=== PATIENT | female | born 1940 | race Caucasian/White ===

== ENCOUNTER → 2016-12-20 07:34 | Outpatient (CLI) | payer MEDICARE, OTHER | END | disposition home or self-care (01) | LOC: D.CT 07:34 | DX: J32.9 Chronic sinusitis, unspecified (principal); J34.3 Hypertrophy of nasal turbinates ==

== ENCOUNTER 2019-03-28 08:21 | Emergency (ER) | payer MEDICARE, OTHER ==
[~2019-03-28] VITALS: Ht 167.6 cm; Wt 61.4 kg
[2019-03-28 08:24] VITALS: Ht 167.6 cm; Wt 61.4 kg
[2019-03-28] MEDS ORDERED: PROTONIX40 MG PO (08:26)
[2019-03-28] MEDS ORDERED: NORVASC2.5 MG PO (08:27)
[2019-03-28] MEDS ORDERED: OMNICEF300 MG PO (08:28)
[2019-03-28] MEDS ORDERED: TIROSINT50 MCG PO (08:29)
[2019-03-28 09:04] LABS: BASOPHILS 0.4 % (0-2); EOSINOPHILS 2.8 % (0-7); HEMATOCRIT 40.4 % (36.0-48.0); HEMOGLOBIN 12.2 g/dL (12-16); IMMATURE GRANULOCYTES 0.1 % (0-5); LYMPHOCYTES 35.4 % (15-50); MCH 30.3 pg (26.0-34.0); MCHC 30.2 g/dL (31.0-37.0); MCV 100.5 fL (80.0-100.0); MEAN PLATELET VOLUME 10.4 fL (7.4-10.4); MONOCYTES 5.7 % (2-11); NEUTROPHILS 55.6 % (40-80); PLATELET COUNT 223 10x3/uL (130-400); RBC 4.02 10x6/uL (4.00-5.40); WBC 6.8 10x3/uL (4.8-10.8)
[2019-03-28 09:16] LABS: ANION GAP 14.1 mmol/L (8-16); CALCIUM 8.9 mg/dL (8.5-10.1); CARBON DIOXIDE 25.8 mmol/L (21.0-32.0); CREATININE - SERUM 4.1 mg/dL (0.6-1.3); POTASSIUM - SERUM 3.9 mmol/L (3.5-5.1)
[2019-03-28 09:31] LABS: ALBUMIN 2.8 g/dL (3.4-5.0); BILIRUBIN - TOTAL 0.36 mg/dL (0.2-1.3); THYROID STIMULATING HORMONE 9.89 uIU/mL (0.36-3.74); TROPONIN-I 0.026 ng/mL (0.000-0.060)
[2019-03-28 10:51] VITALS: BP 120/68
[2019-05-07 09:40] VITALS: Ht 167.6 cm; Wt 61.4 kg
== END 2019-03-28 11:16 | disposition home or self-care (01) ==
LOC: D.ER 08:21
PROVIDERS: Family Medicine
DX: R10.9 Unspecified abdominal pain (principal); I12.0 Hypertensive chronic kidney disease with stage 5 chronic kidney disease or end stage renal disease; N18.6 End stage renal disease; E03.9 Hypothyroidism, unspecified

== ENCOUNTER 2019-04-03 22:11 | Emergency (ER) | payer MEDICARE, OTHER ==
[~2019-04-03] VITALS: Ht 167.6 cm; Wt 61.4 kg
[~2019-04-03 22:11] MED LIST: NORVASC2.5 MG PO; OMNICEF300 MG PO; PROTONIX40 MG PO; TIROSINT50 MCG PO
[2019-04-03 22:42] VITALS: BP 178/93; Ht 167.6 cm; Wt 61.4 kg
[2019-04-03 23:11] LABS: BASOPHILS 0.8 % (0-2); EOSINOPHILS 2.9 % (0-7); HEMOGLOBIN 12.4 g/dL (12-16); IMMATURE GRANULOCYTES 0.4 % (0-5); MCH 30.2 pg (26.0-34.0); MCHC 30.2 g/dL (31.0-37.0); MEAN PLATELET VOLUME 9.9 fL (7.4-10.4); MONOCYTES 6.2 % (2-11); NEUTROPHILS 47.7 % (40-80); PLATELET COUNT 209 10x3/uL (130-400); RDW 15.8 % (11.5-14.5); WBC 7.9 10x3/uL (4.8-10.8)
[2019-04-03 23:21] LABS: APPEARANCE HAZY (CLEAR); BACTERIA MODERATE /hpf (NEGATIVE); BILIRUBIN NEGATIVE (NEGATIVE); COLOR YELLOW (YELLOW); EPITHELIAL CELLS 0-5 /hpf (0-5); GLUCOSE NEGATIVE (NEGATIVE); KETONE NEGATIVE (NEGATIVE); NITRITE NEGATIVE (NEGATIVE); PROTEIN 1+ mg/dL (NEGATIVE); SPECIFIC GRAVITY 1.005 (1.005-1.020); UROBILINOGEN NORMAL (NORMAL)
[2019-04-03 23:23] LABS: CARBON DIOXIDE 25.1 mmol/L (21.0-32.0); CREATININE - SERUM 3.7 mg/dL (0.6-1.3); POTASSIUM - SERUM 4.1 mmol/L (3.5-5.1)
[2019-04-03 23:29] LABS: ALBUMIN 2.9 g/dL (3.4-5.0); BILIRUBIN - TOTAL 0.35 mg/dL (0.2-1.3)
[2019-04-03] MEDS ORDERED: CIPRO500 MG PO (23:51)
[2019-04-03] MEDS ORDERED: HYDROCODONE-A1 UDTA2 PO (23:51)
== END 2019-04-04 00:35 | disposition home or self-care (01) ==
LOC: D.ER 22:11
PROVIDERS: Family Medicine
DX: M54.2 Cervicalgia (principal); I10 Essential (primary) hypertension; I48.91 Unspecified atrial fibrillation

== ENCOUNTER 2019-05-06 13:11 | Inpatient (IN) | payer MEDICARE, OTHER ==
[2019-05-06] VITALS (10 sets, daily range): BP systolic 125–228; BP diastolic 64–82; BMI 23.1
[~2019-05-06] VITALS: Ht 167.6 cm; Wt 65.0 kg
[~2019-05-06 13:11] MED LIST changes: +CIPRO500 MG PO; +HYDROCODONE-A1 UDTA2 PO
[2019-05-06] MEDS ORDERED: HYDRALAZINE HCL25 MG PO (13:43)
[2019-05-06 14:39] LABS: BASOPHILS 0.3 % (0-2); EOSINOPHILS 1.4 % (0-7); HEMATOCRIT 38.4 % (36.0-48.0); HEMOGLOBIN 12.3 g/dL (12-16); IMMATURE GRANULOCYTES 0.3 % (0-5); MCH 29.4 pg (26.0-34.0); MCV 91.9 fL (80.0-100.0); MEAN PLATELET VOLUME 9.7 fL (7.4-10.4); MONOCYTES 5.4 % (2-11); NEUTROPHILS 57.6 % (40-80); PLATELET COUNT 208 10x3/uL (130-400); RBC 4.18 10x6/uL (4.00-5.40); RDW 13.5 % (11.5-14.5)
[2019-05-06 14:54] LABS: ANION GAP 12.4 mmol/L (8-16); CALCIUM 9.5 mg/dL (8.5-10.1); CARBON DIOXIDE 25.4 mmol/L (21.0-32.0); CREATININE - SERUM 3.5 mg/dL (0.6-1.3); POTASSIUM - SERUM 3.8 mmol/L (3.5-5.1)
[2019-05-06 15:00] LABS: BILIRUBIN - TOTAL 0.32 mg/dL (0.2-1.3); PROTEIN - SERUM 7.2 g/dL (6.4-8.2)
--- NOTE | 2019-05-06 15:00 | NUR ---
PT AWAKE AND ALERT, COLOR WNL FOR RACE; NO NEEDS NOTED; WILL CONTINUE TO MONITOR.
--- NOTE | 2019-05-06 16:00 | NUR ---
PT AWAKE AND ALERT; HOB ADJUSTED FOR COMFORT; NO NEEDS NOTED; WILL CONTINUE TO MONITOR
[2019-05-06 16:53] LABS: APTT 26.3 SECONDS (22.8-39.4); INR 0.93 (0.85-1.17); PROTIME 11.9 SECONDS (11.6-15.0)
--- NOTE | 2019-05-06 17:00 | NUR ---
PT REPORTS HEADACHE IS GONE; DENIES ANY PAIN; UPDATED ON PLAN OF CARE AND DELAYS IN CARE; NO NEEDS NOTED.
[2019-05-06 17:17] LABS: CKMB 0.6 U/L (0.0-3.6); CREATINE KINASE 13 UL (21-215); TROPONIN-I 0.026 ng/mL (0.000-0.060)
[2019-05-06 18:32] LABS: APPEARANCE CLEAR (CLEAR); BILIRUBIN NEGATIVE (NEGATIVE); COLOR STRAW (YELLOW); GLUCOSE NEGATIVE (NEGATIVE); KETONE NEGATIVE (NEGATIVE); NITRITE NEGATIVE (NEGATIVE); PROTEIN 3+ mg/dL (NEGATIVE); SPECIFIC GRAVITY 1.005 (1.005-1.020); UROBILINOGEN NORMAL (NORMAL)
--- NOTE | 2019-05-06 18:35 | NUR ---
PT GIVEN A DIET TRAY;
[2019-05-06 18:36] LABS: BACTERIA FEW /hpf (NEGATIVE); EPITHELIAL CELLS 0-5 /hpf (0-5); RED CELLS - URINE 0-5 /hpf (0-5)
--- NOTE | 2019-05-06 19:03 | NUR ---
BUSPAR 5 MG TABLET RECEIVED FROM PHARMACY SENT TO ICU WITH PATIENT; NOT GIVEN IN THE ER.
--- NOTE | 2019-05-06 19:10 | NUR ---
REPORT RECEIVED. ASSESSMENT COMPELTE PER FLOW SHEET. PT RECEIVED FROM ER. VSS. NO NEW CHANGES WILL CONTINUE TO MONITOR
--- NOTE | 2019-05-06 21:20 | NUR ---
PT C/O HEADACHE 6/10 PRN MORPHINE ADM. DENIES FURTHER NEEDS
--- NOTE | 2019-05-06 23:00 | NUR ---
REASSESSMENT COMPLETE PER FLOW SHEET. VSS. NO NEW CHANGES WILL CONTINUE TO MONITOR
[2019-05-07] VITALS (13 sets, daily range): BP systolic 114–154; BP diastolic 61–85; Ht 167.6 cm; Wt 65.0 kg
--- NOTE | 2019-05-07 01:15 | NUR ---
PT SLEEPING COMFORTABLY VSS NO NEW CHANGES WILL CONTINUE TO MONITOR
[2019-05-07 04:32] LABS: BASOPHILS 0.8 % (0-2); EOSINOPHILS 3.3 % (0-7); HEMATOCRIT 32.4 % (36.0-48.0); HEMOGLOBIN 10.6 g/dL (12-16); IMMATURE GRANULOCYTES 0.2 % (0-5); LYMPHOCYTES 43.1 % (15-50); MCH 30.5 pg (26.0-34.0); MCHC 32.7 g/dL (31.0-37.0); MCV 93.1 fL (80.0-100.0); MEAN PLATELET VOLUME 9.7 fL (7.4-10.4); NEUTROPHILS 45.6 % (40-80); PLATELET COUNT 170 10x3/uL (130-400); RBC 3.48 10x6/uL (4.00-5.40); RDW 13.6 % (11.5-14.5); WBC 6.3 10x3/uL (4.8-10.8)
[2019-05-07 04:49] LABS: ALBUMIN 2.4 g/dL (3.4-5.0); BILIRUBIN - TOTAL 0.23 mg/dL (0.2-1.3); CALCIUM 8.5 mg/dL (8.5-10.1); CARBON DIOXIDE 22.7 mmol/L (21.0-32.0); CREATININE - SERUM 4.3 mg/dL (0.6-1.3); POTASSIUM - SERUM 3.7 mmol/L (3.5-5.1); PROTEIN - SERUM 5.4 g/dL (6.4-8.2)
--- NOTE | 2019-05-07 07:00 | NUR ---
REPORT RECEVIED FROM THE OFF GOING RN. SEE ASSESSMENT IN THE PTS FLOW SHEET. PT DENIES PAIN. TYPE AND CROSS BLOOD COLLECTED AND SENT TO LAB. COLOSTOMY PINK AND MOIST. CALL LIGHT IN REACH. WILL CONT POC.
--- NOTE | 2019-05-07 07:00 | NUR ---
REPORT RECEVIED FROM THE OFF GOING RN. SEE ASSESSMENT IN THE PTS FLOW SHEET. VSS. PT DENIES NEEDS/PAIN AT THIS TIME. CALL LIGHT IN REACH. WILL CONT POC.
--- NOTE | 2019-05-07 07:07 | NUR ---
PER ASHELE AND DR MARTINI. DNI
--- NOTE | 2019-05-07 10:02 | NUR ---
DR DOV HARRIS R/T CONSULT.
--- NOTE | 2019-05-07 10:12 | NUR ---
DR MONAE PAGED BACK AND AWARE OF CONSULT.
--- NOTE | 2019-05-07 12:08 | NUR ---
LUNCH TRAY PROVIED FOR THE PT.
--- NOTE | 2019-05-07 12:26 | NUR ---
PT COMPLAINING OF NAUSEA. SEE MAR FOR ZOFRAN.
--- NOTE | 2019-05-07 13:44 | NUR ---
NO MORE COMPLAINT OF NAUSEA. VSS. WILL CONT POC.
--- NOTE | 2019-05-07 15:33 | NUR ---
REPORT CALLED TO JELLY NUÑEZ. DELAY IN TRANSFER DUE TO RM 2102 BEING CLEANED
--- NOTE | 2019-05-07 16:25 | NUR ---
PT TRANSFERED TO [facility]. S.
--- NOTE | 2019-05-07 17:17 | NUR ---
PATIENT IS HERE FROM ICU. SHE IS SITTING UP IN BED AND DENIES ANY NEEDS AT THIS TIME. AT BEDSIDE.
--- NOTE | 2019-05-07 18:11 | NUR ---
PATIENT IS IN DIALYSIS AT THIS TIME.
--- NOTE | 2019-05-07 18:36 | NUR ---
ZOFRAN GIVEN PRN FOR NAUSEA IN DIALYSIS.
--- NOTE | 2019-05-07 18:45 | MORECARE ---
CASE MANAGEMENT DISCHARGE SUMMARY PATIENT: JYOTI VAZQUEZ UNIT: [id number] ADM DATE: 05/06/19 AGE: 78 : 42 SEX: F ROOM/BED: D.210 AUTHOR: DELROY ARORA PHYSICIAN: REFERRING PHYSICIAN: RHIANNA WINN DO DATE OF SERVICE: 05/07/19 Discharge Plan Patient Name: JYOTI VAZQUEZ Facility: [facility]:[place] : 1940 Planned Disposition: Home Anticipated Discharge Date: Discharge Date: Expected LOS: Initial Reviewer: [email or web address] Initial Review Date: 05/07/2019 Generated: 05/07/19 7:45 pm Patient Name: JYOTI VAZQUEZ Page [phone] at 1845 All edits/amendments must be made on the electronic document DICTATION DATE: 05/07/191844 RACE ENGINE BUILDER: DAMI 05/07/191844 RPT#: [id number] DC DATE: STATUS: ADM IN [address] [place] [address] END OF REPORT
--- NOTE | 2019-05-07 18:52 | MORECARE ---
CASE MANAGEMENT DISCHARGE SUMMARY PATIENT: JYOTI VAZQUEZ UNIT: [id number] ADM DATE: 05/06/19 AGE: 78 : 42 SEX: F ROOM/BED: D.210 AUTHOR: DELROY ARORA PHYSICIAN: REFERRING PHYSICIAN: RHIANNA WINN DO DATE OF SERVICE: 05/07/19 Discharge Plan Patient Name: JYOTI VAZQUEZ Facility: [facility]:[place] : 1940 Planned Disposition: Home Anticipated Discharge Date: Discharge Date: Expected LOS: Initial Reviewer: [email or web address] Initial Review Date: 05/07/2019 Generated: 05/07/19 7:51 pm DCPIA - Discharge Planning Initial Assessment Updated by [email or web address]: Trisha Rudd on 05/07/19 6:50 pm * Is the patient Alert and Oriented? Yes * How many steps to enter\exit or inside your home? ramp * PCP [facility] * Pharmacy [facility] * Preadmission Environment Home with Family * ADLs Independent * Other Equipment W/C, WALKER, SC * List name and contact numbers for known caregivers / representatives who currently or will assist patient after discharge: JOELLE VAZQUEZ - SPOUSE- [phone] * Verbal permission to speak to the caregivers and representatives has been obtained from the patient. Yes * Community resources currently utilized None * Please name any agencies selected above. - [facility]- @0630 * Additional services required to return to the preadmission environment? No * Can the patient safely return to the preadmission environment? Yes * Has this patient been hospitalized within the prior 30 days at any hospital? No Last DP export: 05/07/19 5:45 p Patient Name: JYOTI VAZQUEZ Page [phone] at 1852 All edits/amendments must be made on the electronic document DICTATION DATE: 05/07/191850 ORACLE EBS CONSULTANT: DAMI 05/07/191850 RPT#: [id number] DC DATE: STATUS: ADM IN [facility] [address] [place] [address] END OF REPORT
--- NOTE | 2019-05-07 18:58 | MORECARE ---
CASE MANAGEMENT DISCHARGE SUMMARY PATIENT: JYOTI VAZQUEZ UNIT: [id number] ADM DATE: 05/06/19 AGE: 78 : 42 SEX: F ROOM/BED: D.1187 AUTHOR: DELROY ARORA PHYSICIAN: REFERRING PHYSICIAN: RHIANNA WINN DO DATE OF SERVICE: 05/07/19 Discharge Plan Patient Name: JYOTI VAZQUEZ Facility: [facility]:[place] : 1940 Planned Disposition: Home Anticipated Discharge Date: Discharge Date: Expected LOS: Initial Reviewer: [email or web address] Initial Review Date: 05/07/2019 Generated: 05/07/19 7:58 pm Comments DCP- Discharge Planning Updated by [email or web address]: Trisha Rudd on 05/07/19 5:[address] Patient Name: JYOTI VAZQUEZ Admission Status: ER Accout number: [id number] Admission Date: 05-06-2019 : 1940 Admission Diagnosis: Attending: YAKOV Current LOS: 1 Anticipated DC Date: Planned Disposition: Home Primary Insurance: MEDICARE A & B Discharge Planning Comments: CM met with patient to complete initial dc planning assessment. CM educated patient on the CM role and verbal consent given by patient to complete assessment. Patient lives at home with her where she is independent with her care. At discharge patient plans to return home and feels this is a safe discharge. CM discussed availability of home health, rehab services, and medical equipment. Her will drive her home. Patient has hemodialysis in [facility] @ 0630 Patient denied known discharge needs at this time. CM spoke to patient regarding assistance with medications. Patient stated she only has problems obtaining medications when it is a newer medication. She stated she can't afford 300-400 dollars a month for medications. CM reviewed over patient current medications and didn't see any meds that are not generic. CM will continue to follow and will assist as needed with dc plans/needs. Talent Coordinator: Trisha Rudd DCPIA - Discharge Planning Initial Assessment Updated by [email or web address]: Trisha Rudd on 05/07/19 6:50 pm * Is the patient Alert and Oriented? Yes * How many steps to enter\exit or inside your home? ramp * PCP [facility] * Pharmacy [facility] * Preadmission Environment Home with Family * ADLs Independent * Other Equipment W/C, WALKER, SC * List name and contact numbers for known caregivers / representatives who currently or will assist patient after discharge: JOELLE VAZQUEZ - [facility]- [phone] * Verbal permission to speak to the caregivers and representatives has been obtained from the patient. Yes * Community resources currently utilized None * Please name any agencies selected above. - [facility]- @0630 * Additional services required to return to the preadmission environment? No * Can the patient safely return to the preadmission environment? Yes * Has this patient been hospitalized within the prior 30 days at any hospital? No Last DP export: 05/07/19 5:52 p Patient Name: JYOTI VAZQUEZ Page [phone] at 1858 All edits/amendments must be made on the electronic document DICTATION DATE: 05/07/191857 DATA ENTRY SPECIALIST: DAMI 05/07/191857 RPT#: [id number] DC DATE: STATUS: ADM IN [facility] [address] [place] [address] END OF REPORT
--- NOTE | 2019-05-07 21:47 | NUR ---
WENT INTO PTS ROOM TO GIVE HER NIGHT MEDS. SHE HAS CORDARONE AND LOPRESSOR ORDERED ON THE MAR BY . PT STATES THAT SHE DOES NOT TAKE THOSE MEDS AND THAT DR. MCCORMACK IS NOT HER DOCTOR. SHE TAKES NORVASC AND HYDRALAZINE SHE SAID. SHE STATES THAT WITH HER BLOOD PRESSURE OF 140/60 THAT SHE WOULD NOT TAKE HER NORVASC AND HYDRALAZINE. CALLED HOMERO MICHELLE WITH DR. WINN AND INFORMED HER OF THE ABOVE. [facility] AND [facility] WILL [facility] T[facility].
[2019-05-08] VITALS: BP 160/65
[2019-05-08 04:00] VITALS: BP 109/67
[2019-05-08 04:53] LABS: BASOPHILS 0.7 % (0-2); EOSINOPHILS 1.7 % (0-7); HEMATOCRIT 33.9 % (36.0-48.0); HEMOGLOBIN 10.8 g/dL (12-16); IMMATURE GRANULOCYTES 0.2 % (0-5); LYMPHOCYTES 37.4 % (15-50); MCH 29.3 pg (26.0-34.0); MCHC 31.9 g/dL (31.0-37.0); MCV 92.1 fL (80.0-100.0); MEAN PLATELET VOLUME 10.1 fL (7.4-10.4); MONOCYTES 7.1 % (2-11); NEUTROPHILS 52.9 % (40-80); PLATELET COUNT 167 10x3/uL (130-400); RBC 3.68 10x6/uL (4.00-5.40); RDW 13.5 % (11.5-14.5); WBC 5.9 10x3/uL (4.8-10.8)
[2019-05-08 05:10] LABS: ALBUMIN 2.4 g/dL (3.4-5.0); ANION GAP 14.1 mmol/L (8-16); BILIRUBIN - TOTAL 0.25 mg/dL (0.2-1.3); CALCIUM 8.3 mg/dL (8.5-10.1); CARBON DIOXIDE 25.8 mmol/L (21.0-32.0); CREATININE - SERUM 4.3 mg/dL (0.6-1.3); PHOSPHOROUS 5.9 mg/dL (2.5-4.9); POTASSIUM - SERUM 3.9 mmol/L (3.5-5.1); PROTEIN - SERUM 5.6 g/dL (6.4-8.2)
--- NOTE | 2019-05-08 07:21 | NUR ---
PT AWAKE AND ORIENTED, REQUESTS YARELY FOR SHOWER. NO OTHER COMPLAINTS OR CONCERNS STATED THIS MORNING. NO FAMILY PRESENT AT BEDSIDE, CL IN REACH, SRX2.
[2019-05-08 09:06] VITALS: BP 148/70
--- NOTE | 2019-05-08 13:09 | NUR ---
I have reviewed this patient and I concur with the Shift Assessment completed by the Licensed Practical Nurse today this shift.
[2019-05-08 13:16] VITALS: BP 129/52
--- NOTE | 2019-05-08 19:10 | NUR ---
BEDSIDE REPORT RECEIVED FROM DAY SHIFT, PT CARE ASSUMED. INTRODUCED SELF AND WROTE NAME ON BOARD. PT SITTING UP IN BED, WATCHING TV, AAOX4. DENIES PAIN OR ANY NEEDS AT THIS TIME. BED IN LOWEST POSITION, SR X2, CALL LIGHT WITHIN REACH. WILL CONTINUE TO MONITOR.
--- NOTE | 2019-05-08 19:32 | NUR ---
PT HAS C/O THAT HER NURSES/AIDS WERE NOT IN HER ROOM ENOUGH TODAY. WE HAD BEEN IN AND OUT MULTIPLE TIMES BUT PT FEELS THAT IT WAS NOT ENOUGH. PTS I/V WAS LEAKING, STOPPED ANTIBIOTICS AND TOLD PT TO GO AHEAD AND EAT WHILE I GOT THE THINGS TO TAKE THE IV OUT AND START ANOTHER. D/T BEING EXTREMELY BUSY IT DID NOT HAPPEN QUICKLY ENOUGH FOR THE PT AND SHE COMPLAINED THAT I "LEFT HER" TO "BE WITH" MY OTHER PATIENTS. KINDLY EXPLAINED THAT ALL MY PTS ARE IMPORTANT AND REQUIRE MUCH OF MY ATTENTION AND CARE SHE DOES. PT SEEMS PLACATED, I/V RESTARTED TO RIGHT AC. PTS BED THEN BROKE, RSIING UP BUT SHUTTING DOWN. ATTEMPTED MULTIPLE WAYS TO TURN POWER BACK ON, ENDED UP HAVNIG TO SWITCH THE BED WITH ANOTHER ROOM. PT C/O NOISE LEVEL, DOOR SHUT, LIGHTS OFF, PER PTS REQUEST. CL IN REACH, SRX2, NO FAMILY PRESENT AT BEDSIDE.
[2019-05-08 19:54] VITALS: BP 151/80
[2019-05-08 20:00] VITALS: BP 128/66
[2019-05-09] VITALS: BP 172/87
[2019-05-09 04:00] VITALS: BP 154/76
[2019-05-09 05:15] LABS: BASOPHILS 0.3 % (0-2); EOSINOPHILS 3.1 % (0-7); HEMOGLOBIN 10.3 g/dL (12-16); IMMATURE GRANULOCYTES 0.3 % (0-5); LYMPHOCYTES 36.2 % (15-50); MCH 29.5 pg (26.0-34.0); MCHC 32.2 g/dL (31.0-37.0); MCV 91.7 fL (80.0-100.0); MEAN PLATELET VOLUME 10.3 fL (7.4-10.4); MONOCYTES 5.7 % (2-11); NEUTROPHILS 54.4 % (40-80); PLATELET COUNT 182 10x3/uL (130-400); RBC 3.49 10x6/uL (4.00-5.40); RDW 13.7 % (11.5-14.5); WBC 6.5 10x3/uL (4.8-10.8)
[2019-05-09 05:21] LABS: ALBUMIN 2.4 g/dL (3.4-5.0); ANION GAP 15.2 mmol/L (8-16); BILIRUBIN - TOTAL 0.14 mg/dL (0.2-1.3); CALCIUM 8.5 mg/dL (8.5-10.1); CARBON DIOXIDE 24.5 mmol/L (21.0-32.0); PHOSPHOROUS 6.8 mg/dL (2.5-4.9); POTASSIUM - SERUM 3.7 mmol/L (3.5-5.1); PROTEIN - SERUM 5.6 g/dL (6.4-8.2)
[2019-05-09 05:24] LABS: CREATININE - SERUM 5.8 mg/dL (0.6-1.3)
[2019-05-09 06:04] LABS: CREATININE - SERUM 5.8 mg/dL (0.6-1.3); CREATININE - URINE 41.6 mg/dL (30-125)
[2019-05-09 08:55] VITALS: BP 190/78
[2019-05-09] MEDS ORDERED: NORVASC5 MG PO (09:19)
[2019-05-09] MEDS ORDERED: HYDRALAZINE HCL25 MG PO (09:19)
[2019-05-09] MEDS ORDERED: NEPHRO-VITE RX1 TAB PO (09:20)
[2019-05-09] MEDS ORDERED: COREG 3.1253.125 MG PO (09:20)
[2019-05-09] MEDS ORDERED: BUSPAR5 MG PO (09:20)
[2019-05-09] MEDS ORDERED: SYNTHROID88 MCG PO (09:20)
[2019-05-09 11:51] VITALS: BP 150/78
[2019-05-09 16:40] VITALS: BP 173/78
--- NOTE | 2019-05-09 19:23 | NUR ---
REPORT RECEIVED. PT LAYING IN BED, RR EVEN AND UNLABORED ON RA. NO S/Sx OF DISTRESS NOTED. DENIES HEADACHE AT THIS TIME. NO NEEDS EXPRESSED. SRX2, CALL LIGHT IN REACH. WILL CTM.
[2019-05-09 20:00] VITALS: BP 159/77
[2019-05-10 00:28] VITALS: BP 179/85
[2019-05-10 03:39] LABS: BASOPHILS 0.5 % (0-2); EOSINOPHILS 2.2 % (0-7); HEMATOCRIT 31.8 % (36.0-48.0); HEMOGLOBIN 10.4 g/dL (12-16); IMMATURE GRANULOCYTES 0.3 % (0-5); LYMPHOCYTES 34.5 % (15-50); MCH 29.5 pg (26.0-34.0); MCHC 32.7 g/dL (31.0-37.0); MCV 90.1 fL (80.0-100.0); MEAN PLATELET VOLUME 9.6 fL (7.4-10.4); MONOCYTES 5.5 % (2-11); PLATELET COUNT 178 10x3/uL (130-400); RBC 3.53 10x6/uL (4.00-5.40); RDW 13.6 % (11.5-14.5); WBC 6.4 10x3/uL (4.8-10.8)
[2019-05-10 03:46] LABS: CALCIUM 8.6 mg/dL (8.5-10.1); CARBON DIOXIDE 25.5 mmol/L (21.0-32.0); CREATININE - SERUM 6.6 mg/dL (0.6-1.3); PHOSPHOROUS 6.4 mg/dL (2.5-4.9); POTASSIUM - SERUM 3.5 mmol/L (3.5-5.1)
[2019-05-10 04:30] VITALS: BP 182/84
--- NOTE | 2019-05-10 07:46 | NUR ---
AM ROUNDS DONE ON PT. PT STATES SHE IS SUPPOSSED TO GO FOR HD AT O800. I STATED TO HER DIALYSIS DOESN'T USUALLY GET HERE UNTIL AFTER 0800 BUT I WILL CALL AND SPEAK WITH THEM. PT VERBALIZED UNDERSTANDING AND STATES HER VITALS HAVE NOT BEEN CHECKED THIS AM AND SHE WANTS THEM CHECKED RIGHT NOW. THIS NURSE OBTAINED A VS MACHINE AND TOOK PT'S VITALS. VS STABLE. HELD AMLODIPINE AND APRESOLINE SINCE PT HAS HD TODAY. PT TO BE NPO FOR GASTRIC EMPTYING SCAN AND NO PAIN MEDS BUT CAN HAVE REGULAR MEDS. I EXPLAINED NPO STATUS WND WHY AND WHAT A GASTRIC EMPTYING SCAN IS AND HOW IT IS PERFORMED AND WHAT THEY ARE LOOKING FOR. PT VERBALIZED UNDERSTANDING AND WANTS TO KNOW WHAT TIME. I STATED TO HER I WILL CALL AND SPEAK WITH THEM AND LET HER KNOW. PT VERBALIZED UNDERSTANDING.
[2019-05-10 07:57] VITALS: BP 119/84
--- NOTE | 2019-05-10 08:06 | NUR ---
CALLED AND SPOKE WITH DIALYSIS AND THEY STATE IT WILL BE A FEW HOURS BEFORE THEY CAN GET TO PT BECAUSE THEY HAVE TO DO A PT IN ER AND CLEAN ALL THE MACHINES. I STATED TO THEM PT WILL ALSO HAVE A GASTRIC EMPTYING SCAN DONE TODAY AND I'M TRYING TO PLAN IT OUT TO WHERE SHE GETS THAT DONE BEFORE. THEY VERBALIZED UNDERSTANDING. CALLED NM AND ASKED WHAT TIME PT WILL GO AND THEY STATE THEY HAVE A GI BLEED AND THEN A PIPIDA SCAN SO NOT UNTIL AT LEAST AFTER 1000. I VERBALIZED UNDERSTANDING AND STATED TO THEM PT WILL GO TO DIALYSIS TODAY BUT WE ARE WANTING HER SCAN TO GET DONE BEFORE SHE GOES. THEY VERBALIZED UNDERSTANDING. STATED THIS TO PT AND SHE VERBALIZED UNDERSTANDING. PT STATES SHE WANTS A COMPLETE BED CHANGE DONE TODAY AND I STATED TO HER WHEN THE I WILL LET CENTERLESS GRINDER OPERATOR KNOW. PT VERBALIZED UNDERSTANDING AND THEN STATES IT HAS BEEN AWHILE SINCE HER LAST BM. I STATED TO HER I WILL SPEAK WITH NURSE PRACTIONER WHEN SHE GETS HERE. PT VERBALIZED UNDERSTANDING.
[2019-05-10 10:27] VITALS: BP 119/84
--- NOTE | 2019-05-10 11:07 | NUR ---
COMPLETE BED CHANGE DONE.
--- NOTE | 2019-05-10 11:51 | NUR ---
PT'S GASTRIC EMPTYING SCAN IS AT 1300 AND WILL HAVE HD AFTER. STATED THIS TO PT AND SHE VERBALIZED UNDERSTANDING.
--- NOTE | 2019-05-10 12:26 | NUR ---
CALLED VENKAT VALENTIN ABOUT PT C/O CONSTIPATION AND WANTING SOMETHING FOR IT SHE STATES TO ORDER MIRALIX BIDP. I VERBALIZED UNDERSTANDING.
[2019-05-10 13:10] VITALS: BP 191/86
--- NOTE | 2019-05-10 13:40 | NUR ---
PT WENT FROM RUNNING SINUS RHYTHM TO TO AFIB NOW IS IN [place]. DR. DOV HARRIS.
--- NOTE | 2019-05-10 14:11 | NUR ---
SPOKE WITH DIALYSIS AND THEY STATE TO GIVE SOTALOL AND THEY STATE THEY ARE READY FOR PATIENT IN DIALYSIS AND THAT SHE CAN HAVE TRAY IN DIALYSIS. ORDERED TRAY TO BE TAKEN TO DIALYSIS. PT RETURNED FROM [facility] GASTRIC EMPTYING SCAN ADN TAKEN TO DIALYSIS VIA BED.
--- NOTE | 2019-05-10 14:15 | NUR ---
Nutrition Follow-up: Gastric emptying scan today. Reports eating <50% of meals yesterday. C/o early satiety. Does not tolerate Nepro. Diet: Renal No new wt Last BM: 05/07 per pt Labs noted: K+ 3.5, PO4 6.4 Meds noted: Nephrovite, Renagel, Miralax -Continue current diet as tolerated. -RD following.
--- NOTE | 2019-05-10 14:33 | NUR ---
SPOKE TO DR. MONAE ABOUT PTS CARDIAC MEDICATIONS, PER HIS ORDER D/C'D COREG AND ADDED SOTOLOL 80MG BID START DOSE NOW.
--- NOTE | 2019-05-10 14:52 | NUR ---
PT'S JOELLE CALLED AND STATES PT CALLED HIM EARLIER THIS AM WANTING TO KNOW THE NAME OF THE DOCTOR WHO "SCANNNED HER TUMMY BEFORE" AND IT IS DR. RUFFIN. HE ASKED IF I COULD TELL PT AND HE WILL BE UP HERE LATER TO SEE PT. I VERBALIZED UNDERSTANDING.
--- NOTE | 2019-05-10 15:22 | NUR ---
DIALYSIS CALLED AND STATES PT TOOK TWO BITES OF TUNA SANDWICH AND STARTED VOMITING. THEY ARE WANTING TO KINOW IF PT HAS ANY ZOFRAN. I VERBALIZED SHE DID AND I WILL COME DOWN AND GIVE IT. WENT FELICITY NTO DIALYSIS AND GAVE IV ZOFRAN THROUGH RIGHT AC 22G IV.
--- NOTE | 2019-05-10 15:40 | NUR ---
I have reviewed this patient and I concur with the Shift Assessment completed by the Licensed Practical Nurse today this shift.
--- NOTE | 2019-05-10 15:44 | NUR ---
PT CONVERTED BACK TO SINUS RHYTHM.
--- NOTE | 2019-05-10 18:00 | NUR ---
PT RETURNED FORM DIALYSIS VIA BED. DIALYSIS STATES THEY GOT OFF 1L.
--- NOTE | 2019-05-10 19:00 | NUR ---
EVENING ROUNDS COMPLETE. PT LAYING IN BED, FAMILY AT BEDSIDE. NO SIGNS OF DISTRESS. PT DENIES ANY PAIN OR NEEDS AT THIS TIME. AAOX4. CL IN REACH, BED IN LOWEST POSITION.
[2019-05-10 20:00] VITALS: BP 152/78
[2019-05-11] VITALS: BP 150/663
[2019-05-11 04:00] VITALS: BP 138/68
[2019-05-11 06:14] LABS: BASOPHILS 0.8 % (0-2); EOSINOPHILS 2.1 % (0-7); HEMATOCRIT 34.5 % (36.0-48.0); IMMATURE GRANULOCYTES 0.2 % (0-5); LYMPHOCYTES 39.9 % (15-50); MCH 29.3 pg (26.0-34.0); MCHC 31.9 g/dL (31.0-37.0); MEAN PLATELET VOLUME 10.5 fL (7.4-10.4); MONOCYTES 7.1 % (2-11); NEUTROPHILS 49.9 % (40-80); PLATELET COUNT 181 10x3/uL (130-400); RBC 3.75 10x6/uL (4.00-5.40); RDW 13.9 % (11.5-14.5); WBC 6.5 10x3/uL (4.8-10.8)
[2019-05-11 06:59] LABS: ANION GAP 10.9 mmol/L (8-16); CALCIUM 8.6 mg/dL (8.5-10.1); CARBON DIOXIDE 27.9 mmol/L (21.0-32.0); CREATININE - SERUM 4.9 mg/dL (0.6-1.3); PHOSPHOROUS 5.2 mg/dL (2.5-4.9); POTASSIUM - SERUM 3.8 mmol/L (3.5-5.1)
--- NOTE | 2019-05-11 07:30 | NUR ---
A/A/OX3. DENIES ANY PAIN OR DISCOMFORT AND NO REQUESTS VOICED. CONTINUES IN CONTACT ISOLATION. ASSESSMENT COMPLETED AND WILL CONTINUE POC. SL PATENT TO BOTH WRIST WITHOUT REDNESS OR EDEMA NOTED AT SITE. CALL LIGHT IN REACH.
[2019-05-11 10:57] VITALS: BP 140/59
[2019-05-11 12:00] VITALS: BP 154/76
--- NOTE | 2019-05-11 14:43 | MORECARE ---
CASE MANAGEMENT DISCHARGE SUMMARY PATIENT: JYOTI VAZQUEZ UNIT: [id number] ADM DATE: 05/06/19 AGE: 78 : 42 SEX: F ROOM/BED: D.9399 AUTHOR: DELROY ARORA PHYSICIAN: REFERRING PHYSICIAN: RHIANNA WINN DO DATE OF SERVICE: 05/11/19 Discharge Plan Patient Name: JYOTI VAZQUEZ Facility: [facility]:[place] : 1940 Planned Disposition: Home Anticipated Discharge Date: 05/12/19 Discharge Date: Expected LOS: 6 Initial Reviewer: [email or web address] Initial Review Date: 05/07/2019 Generated: 05/11/19 3:43 pm Comments DCP- Discharge Planning Updated by [email or web address]: Trisha Rudd on 05/07/19 5:[address] Patient Name: JYOTI VAZQUEZ Admission Status: ER Accout number: [id number] Admission Date: 05-06-2019 : 1940 Admission Diagnosis: Attending: YAKOV Current LOS: 1 Anticipated DC Date: Planned Disposition: Home Primary Insurance: MEDICARE A & B Discharge Planning Comments: CM met with patient to complete initial dc planning assessment. CM educated patient on the CM role and verbal consent given by patient to complete assessment. Patient lives at home with her where she is independent with her care. At discharge patient plans to return home and feels this is a safe discharge. CM discussed availability of home health, rehab services, and medical equipment. Her will drive her home. Patient has hemodialysis in [facility] @ 0630 Patient denied known discharge needs at this time. CM spoke to patient regarding assistance with medications. Patient stated she only has problems obtaining medications when it is a newer medication. She stated she can't afford 300-400 dollars a month for medications. CM reviewed over patient current medications and didn't see any meds that are not generic. CM will continue to follow and will assist as needed with dc plans/needs. Lighting Director: Trisha Rudd DCPIA - Discharge Planning Initial Assessment Updated by [email or web address]: Trisha Rudd on 05/07/19 6:50 pm * Is the patient Alert and Oriented? Yes * How many steps to enter\exit or inside your home? ramp * PCP [facility]SON * Pharmacy [facility] * Preadmission Environment Home with Family * ADLs Independent * Other Equipment W/C, WALKER, SC * List name and contact numbers for known caregivers / representatives who currently or will assist patient after discharge: JOELLE VAZQUEZ - SPOUSE- [phone] * Verbal permission to speak to the caregivers and representatives has been obtained from the patient. Yes * Community resources currently utilized None * Please name any agencies selected above. - [facility] @0630 * Additional services required to return to the preadmission environment? No * Can the patient safely return to the preadmission environment? Yes * Has this patient been hospitalized within the prior 30 days at any hospital? No Coverage Notice Reviewer: [email or web address] Saravanan Duggan Notice Issued Date-Time: 05/11/2019 12:40 Notice Type: IM Discharge Notice Notice Delivered To: Patient Relationship to Patient: Forestry Crew Chief Name: Delivery Method: HAND - Hand Delivered Clotilde Days: Prior Verbal Notification: Recipient Understood Notice: Yes Recipient Signature: Yes Med Rec Note Co-signed by Attending: Coverage Notice Comment: Last DP export: 05/07/19 5:58 p Patient Name: JYOTI VAZQUEZ Page [phone] at 1443 All edits/amendments must be made on the electronic document DICTATION DATE: 05/11/191442 CONCRETE HANDLER: DAMI 05/11/19 144 RPT#: [id number] DC DATE: STATUS: ADM IN [facility] [address] [place] [address] END OF REPORT
--- NOTE | 2019-05-11 18:28 | NUR ---
REVIEWED ASSESSMENT BY LITHOPRESS OPERATOR AND I CONCUR.
[2019-05-11 18:32] VITALS: BP 139/59
--- NOTE | 2019-05-11 19:16 | NUR ---
EVENING ROUNDS COMPLETE, PT LAYING IN BED, AAOX4. NO SIGNS OF DISTRESS. PT DENIES ANY PAIN OR NEEDS AT THIS TIME. CL IN REACH, BED IN LOWEST POSITION.
[2019-05-11 20:00] VITALS: BP 135/57
[2019-05-12 00:27] VITALS: BP 118/51
[2019-05-12 04:30] VITALS: BP 131/57
[2019-05-12 04:39] LABS: BASOPHILS 0.4 % (0-2); EOSINOPHILS 3.1 % (0-7); HEMATOCRIT 36.2 % (36.0-48.0); HEMOGLOBIN 11.6 g/dL (12-16); IMMATURE GRANULOCYTES 0.3 % (0-5); LYMPHOCYTES 43.6 % (15-50); MCH 29.4 pg (26.0-34.0); MCV 91.9 fL (80.0-100.0); MEAN PLATELET VOLUME 11.1 fL (7.4-10.4); MONOCYTES 5.8 % (2-11); NEUTROPHILS 46.8 % (40-80); RBC 3.94 10x6/uL (4.00-5.40); RDW 13.6 % (11.5-14.5); WBC 7.5 10x3/uL (4.8-10.8)
[2019-05-12 04:46] LABS: ANION GAP 14.5 mmol/L (8-16); CALCIUM 8.8 mg/dL (8.5-10.1); POTASSIUM - SERUM 3.5 mmol/L (3.5-5.1)
[2019-05-12 04:50] LABS: PLATELET COUNT 222 10x3/uL (130-400)
[2019-05-12 08:32] VITALS: BP 143/66
--- NOTE | 2019-05-12 10:00 | NUR ---
DR DE OFFICE TO CALL AND STATE THAT PATIENT NEEDS TO BE NPO PAST MIDNIGHT TOMORROW NIGHT FOR SURGERY.
[2019-05-12 11:51] VITALS: BP 136/63
--- NOTE | 2019-05-12 13:51 | NUR ---
I have reviewed this patient and I concur with the Shift Assessment completed by the Licensed Practical Nurse today this shift.
[2019-05-12 16:10] VITALS: BP 185/97
--- NOTE | 2019-05-13 02:03 | NUR ---
PT RESTING COMFORTABLY IN BED RR EVEN AND UNLABORED. NO S/S OF DISTRESS. BED LOW CALL LIGHT WITHIN REACH. WILL CONTINUE TO MONITOR.
[2019-05-13 04:30] LABS: BASOPHILS 0.7 % (0-2); EOSINOPHILS 2.2 % (0-7); HEMATOCRIT 33.3 % (36.0-48.0); HEMOGLOBIN 10.8 g/dL (12-16); IMMATURE GRANULOCYTES 0.1 % (0-5); LYMPHOCYTES 45.1 % (15-50); MCH 29.8 pg (26.0-34.0); MCHC 32.4 g/dL (31.0-37.0); MCV 91.7 fL (80.0-100.0); MEAN PLATELET VOLUME 10.4 fL (7.4-10.4); MONOCYTES 5.8 % (2-11); NEUTROPHILS 46.1 % (40-80); PLATELET COUNT 191 10x3/uL (130-400); RBC 3.63 10x6/uL (4.00-5.40); RDW 13.6 % (11.5-14.5); WBC 7.6 10x3/uL (4.8-10.8)
[2019-05-13 04:51] LABS: ANION GAP 12.2 mmol/L (8-16); CALCIUM 8.3 mg/dL (8.5-10.1); CARBON DIOXIDE 27.1 mmol/L (21.0-32.0); PHOSPHOROUS 3.9 mg/dL (2.5-4.9); POTASSIUM - SERUM 3.3 mmol/L (3.5-5.1)
[2019-05-13 05:01] LABS: CREATININE - SERUM 4.1 mg/dL (0.6-1.3)
--- NOTE | 2019-05-13 07:30 | NUR ---
REPORT RECIEVED. RR EVEN AND UNLABORED. NO DISTRESS NOTED. PT HAS A R FA PIV THAT IS SL. PT STATES SHE WANTS TO GO HOME THIS MORNING. BED LOCKED AND IN LOWEST POSITION, CALL LIGHT WITHIN REACH. WILL CTM
[2019-05-13 08:19] VITALS: BP 158/72
--- NOTE | 2019-05-13 09:43 | NUR ---
DC PAPERWORK GONE OVER AND SIGNED WITH PT. ALL QUESTIONS ANSWERED. PIV REMOVED CATH TIP FULLY INTACT. ALL VALUBLES REMOVED FROM ROOM. PT ESCORTED DOWNSTAIRS VIA WHEELCHAIR TO FRONT ENTRANCE.
--- NOTE | 2019-05-13 10:40 | EC ---
PATIENT:JYOTI VAZQUEZ DATE OF SERVICE: 05/06/19 SEX: F MEDICAL RECORD: [id number] DATE OF : [birth year] LOCATION:D.M2 D.210 AGE OF PATIENT: 78 ADMISSION DATE: 05/06/19 REFERRING PHYSICIAN: INTERPRETING PHYSICIAN: WAYNE HOYT MD ECHOCARDIOGRAM REPORT ECHO CHARGES 4 ECHO COMPLETE Date: 05/07/19 CLINICAL DIAGNOSIS: AF ECHOCARDIOGRAPHIC MEASUREMENTS (adult normal given) AC root (d.<3.7cm) 2.7 cm LV Septum d (<1.2 cm> 1.2 cm Valve Excursion 1.8 cm LV Septum (systole) 1.3 cm Left Atria (s.<4.0cm> 4.1 cm LVPW d(<1.2cm) 1.1 cm RV (d.<2.3cm) 3.0 cm LVPW (sytole) 1.3 cm LV diastole(<5.6CM) 5.3 cm MV E-F(>70mm/sec) cm LV systole 4.1 cm LVOT Diameter 1.6 cm MV exc.(>10mm) cm Est.ejection fraction (50-75%) % DOPPLER: LVIT cm/sec A 86 cm/sec E 113 cm/sec LA cm/sec RVSP 36.2 mmHg LVOT 122 cm/sec AOP1/2T m/s Asc. Ao 139 cm/sec RVOT 67 cm/sec RA cm/sec PA 85 cm/sec AV Gradient Peak 7.7 mmHg AV Mean 4.1 mmHg AV Area 1.9 cm MV Gradient Peak 5.3 mmHg MV Mean 2.7 mmHg MV Area cm COMMENTS: Regulatory Technician: Heidi GRIJALVA Fork Assembler: 1 Dr. Hoyt TAPE# PACS Pericardial Effusion N DATE OF SERVICE: 05/07/2019 FINDINGS: 1. Left ventricular chamber size is within normal limits. Left ventricular systolic function is normal at 55%. 2. Left atrium is enlarged at 4.1 cm. Right atrium and right ventricle chamber sizes are within normal limits. 3. Valvular structures have normal structure and motion. 4. Doppler interrogation reveals trace tricuspid regurgitation, no other valvular insufficiency or stenosis. Pulmonary systolic pressure estimated 36 ECHOCARDIOGRAM REPORT [id number] JYOTI VAZQUEZ mmHg. 5. No evidence of pericardial effusion or left ventricular thrombus. TRANSINT:[id number] Voice Confirmation ID: [id number] DOCUMENT ID: [id number] WAYNE HOYT MD at 1040 CC: [id number] DICTATION DATE: 05/07/191653 REGISTERED DIETICIAN: 05/07/192032 DIS IN 05/13/19 [facility] [address] [place] [id number]
== END 2019-05-13 10:00 | disposition home or self-care (01) | DRG 304 ==
LOC: D.ER 13:11 → D.M2 17:48 → D.ICU 17:48 → D.M2 05-07 16:17
PROVIDERS: Family Medicine; Internal Medicine Nephrology; ADMIT Internal Medicine; ATTEND Internal Medicine
DX: I16.0 Hypertensive urgency (principal); N18.6 End stage renal disease; N39.0 Urinary tract infection, site not specified; I12.0 Hypertensive chronic kidney disease with stage 5 chronic kidney disease or end stage renal disease; Z99.2 Dependence on renal dialysis; E03.9 Hypothyroidism, unspecified; R51 Headache; M51.36 Other intervertebral disc degeneration, lumbar region; R00.2 Palpitations; R11.2 Nausea with vomiting, unspecified

== ENCOUNTER 2020-11-13 12:49 | Emergency (ER) | payer MEDICARE, OTHER ==
[~2020-11-13] VITALS: Ht 165.1 cm; Wt 61.8 kg
[~2020-11-13 12:49] MED LIST changes: +BUSPAR5 MG PO; +COREG 3.1253.125 MG PO; +COUMADIN3 MG PO; +HYDRALAZINE HCL25 MG PO; +MERIBIN5 MG PO; +NEPHRO-VITE RX1 TAB PO; +NORVASC5 MG PO; +SYNTHROID88 MCG PO; +TUMS X-STR300 MG PO; +ULTRAM50 MG PO
[2020-11-13 13:29] VITALS: BP 173/65; Ht 165.1 cm; Wt 61.8 kg
[2020-11-13 14:43] LABS: ALBUMIN 2.9 g/dL (3.4-5.0); ANION GAP 12.6 mmol/L (8-16); BASOPHILS 0.6 % (0-2); BILIRUBIN - TOTAL 0.29 mg/dL (0.2-1.3); CALCIUM 8.4 mg/dL (8.5-10.1); CARBON DIOXIDE 30.2 mmol/L (21.0-32.0); CREATININE - SERUM 8.6 mg/dL (0.6-1.3); EOSINOPHILS 13.6 % (0-7); HEMATOCRIT 32.3 % (36.0-48.0); HEMOGLOBIN 10.8 g/dL (12-16); LYMPHOCYTES 22.9 % (15-50); MCH 31.9 pg (26.0-34.0); MCHC 33.3 g/dL (31.0-37.0); MCV 95.9 fL (80.0-100.0); MEAN PLATELET VOLUME 7.2 fL (7.4-10.4); MONOCYTES 7.3 % (2-11); NEUTROPHILS 55.6 % (40-80); PLATELET COUNT 186 10x3/uL (130-400); PROTEIN - SERUM 5.8 g/dL (6.4-8.2); RBC 3.37 10x6/uL (4.00-5.40); RDW 13.2 % (11.5-14.5); WBC 10.2 10x3/uL (4.8-10.8)
[2020-11-13 14:45] LABS: POTASSIUM - SERUM 2.8 mmol/L (3.5-5.1)
== END 2020-11-13 18:49 | disposition left against medical advice (07) ==
LOC: D.ER 12:49
PROVIDERS: Emergency Medicine
DX: N18.6 End stage renal disease (principal); Z99.2 Dependence on renal dialysis